=== PATIENT | female | born 1955 | race Two or more races ===

== ENCOUNTER 2023-10-22 12:43 | Emergency (ER) | payer MEDICARE, MEDICAID ==
[~2023-10-22] VITALS: Ht 157.5 cm; Wt 59.1 kg
[2023-10-22 13:11] VITALS: TEMP 97.9
[2023-10-22] MEDS: KETOROLAC TROMETHAMINE 30 MG/ML VIAL IM ONE (14:33)
[2023-10-22 15:31] VITALS: BP 152/89; PULSE 66; RESP 16
== END 2023-10-22 15:33 | disposition home or self-care (01) ==
LOC: EMS 12:43
DX: S83.92XA Sprain of unspecified site of left knee, initial encounter (principal); X58.XXXA Exposure to other specified factors, initial encounter; Y93.01 Activity, walking, marching and hiking; Y92.89 Other specified places as the place of occurrence of the external cause; Y99.8 Other external cause status
CPT/HCPCS: 99284; 73562; 73590; 96372; J1885